=== PATIENT | male | born 1940 | race Caucasian/White ===

== ENCOUNTER 2019-05-15 14:01 | Outpatient (RCR) | payer MEDICARE, OTHER, SELFPAY | END 2019-05-15 14:02 | disposition home or self-care (01) | LOC: ANHAUDIO 14:01 | PROVIDERS: PCP Family Medicine; Visit Provider Family Medicine | DX: Z46.1 Encounter for fitting and adjustment of hearing aid (principal) | CPT/HCPCS: 92593 ==

== ENCOUNTER 2019-08-23 10:27 | Outpatient (RCR) | payer MEDICARE, OTHER, SELFPAY | END 2019-08-23 23:59 | disposition home or self-care (01) | LOC: ANHAUDIO 10:27 | PROVIDERS: PCP Family Medicine; Visit Provider Family Medicine | DX: Z46.1 Encounter for fitting and adjustment of hearing aid (principal) | CPT/HCPCS: 92593; V5014 ==

== ENCOUNTER 2019-09-10 09:50 | Observation (INO) | payer MEDICARE, OTHER, SELFPAY ==
[2019-09-10] VITALS (35 sets, daily range): BP systolic 106–168; BP diastolic 58–97; PULSE 55–96; RESP 9–27; TEMP 36–36.9; O2SAT 90–100; BMI 24.4
--- NOTE | ~2019-09-10 | XR_ITS ---
XR chest 2V 09/10/2019 10:15 Indication: Left chest pain radiating to the left arm Procedure: AP and lateral views of the chest Comparison: Comparison to multiple prior studies sequentially, with oldest reviewed study dated 08/29. Findings: Heart size normal. Status post median sternotomy for CABG. No focal air space disease, pulm onary edema, pleural effusion or suspected pneumothorax. The lungs are hyperinflated which is consist ent with, but not diagnostic of chronic obstructive pulmonary disease. There is calcified granuloma l eft lower lobe. Impression: 1: No acute cardiopulmonary disease. Reviewed, dictated and finalized at location A. Impression: 1: No acute cardiopulmonary disease.
--- NOTE | ~2019-09-10 | NM_ITS ---
EXAMINATION: NM anna stress w perfusion DATE: 09/12/2019 10:39 CDT INDICATION: Chest pain TECHNIQUE: Rest images were obtained following intravenous administration of 10.6 mCi Tc99m tetrofosm in (Myoview). The patient was infused intravenously with Lexiscan (regadenoson). Then, 32.7 mCi Tc99m tetrofosmin (Myoview) was administered intravenously, and stress images were obtained. Data was wander nstructed into short axis and horizontal and vertical long axis SPECT images. Gated SPECT images were also obtained. COMPARISON: None. FINDINGS: There is no definite reversible or fixed perfusion abnormality to suggest ischemia or infar ction. There is no segmental wall motion abnormality. Left ventricular ejection fraction measures 7 7%. IMPRESSION: 1. No definite ischemia or infarct. 2. Normal left ventricular ejection fraction measuring 77%. Reviewed, dictated and finalized at location A.
--- NOTE | ~2019-09-10 | CT_ITS ---
EXAMINATION: CT brain wo con DATE: 09/11/2019 10:03 INDICATION: Left arm paresthesias. TECHNIQUE: Computed tomography (CT) of the head was performed without intravenous contrast. The mA wa s adjusted according to patient size. Iterative reconstruction technique was employed. The dose-lengt h product was 605.33 mGy-cm. COMPARISON: Head CT 10/17/2015 FINDINGS: There are scattered areas of low attenuation in the cerebral white matter, which is within normal limits for the patient's age. There is no intracranial hemorrhage, acute infarction, or abnorm al intracranial mass lesion. The ventricles are normal in size. The orbits are normal. There is mild mucosal thickening in the paranasal sinuses. There is a trace right mastoid effusion. IMPRESSION: 1. Normal aging brain. Reviewed, dictated and finalized at location A. IMPRESSION: 1. Normal aging brain.
--- NOTE | 2019-09-10 09:51 | ECG_ITS ---
Measurements Intervals [place] Rate: 88 P: 52 [place]: 150 QRS: -34 QRSD: 94 T: 45 QT: 367 QTc: 445 Interpretive Statements SINUS RHYTHM LEFT AXIS DEVIATION INCOMPLETE RIGHT BUNDLE BRANCH BLOCK DELAYED PRECORDIAL R/S TRANSITION BORDERLINE ST-T WAVE ABNORMALITY- ANTERIOR LEADS BORDERLINE ECG Electronically Signed On 09-10-2019 13:12:04 CDT by Aurelio Patterson D.O.
--- NOTE | 2019-09-10 09:56 | ED.CHESTPAIN ---
HPI - Chest Pain General Chief Complaint: Chest Pain Stated Complaint: chest tightness Time Seen by Provider: 09/10/19 09:56 Source: patient and family Mode of arrival: ambulatory Limitations: no limitations History of Present Illness HPI narrative: Patient is a 79-year-old male with a history of coronary artery disease, CABG, hypertension, who presents for evaluation of chest pain. Patient reports intermittent left-sided chest pain over the past 2 to 3 days, worsened this morning. Described as a dull, aching sensation rated as a current 4 out of 10 over the left side of his chest, at times there is also been left shoulder and arm pain. No diaphoresis, mild nausea, no vomiting. Patient follows with Dr. Zarate, last checkup was 4 months ago and was unremarkable. Patient has been compliant with his medications. No recent cough, cold, congestion, fever. No leg swelling or leg pain. Related Data Home Medications Medication Instructions Recorded Confirmed aspirin 81 mg tablet,delayed 81 mg PO DAILY 04/27/19 07/13/19 release diclofenac sodium 75 mg 75 mg PO DAILY 04/27/19 07/13/19 tablet,delayed release metoprolol succinate 25 mg 12.5 mg PO DAILY tablet 04/27/19 07/13/19 tablet,extended release 24 hr gijietdg-fki-vnbbg acid 300 1 tablet PO DAILY 04/27/19 07/13/19 mcg-lycopene 600 mcg-lutein 300 mcg tablet docusate sodium 100 mg capsule 100 mg PO DAILY 07/27/19 lactobacillus combination no.8 3 3,000 mmu cells PO DAILY 07/27/19 billion cell capsule loratadine 10 mg tablet 10 mg PO DAILY PRN 07/27/19 methylcellulose (laxative) 500 mg 1,000 mg PO BID tablet 07/27/19 tablet diphenhydramine HCl [Allergy 25 mg PO HS PRN 09/10/19 (diphenhydramine)] Allergies Allergy/AdvReac Type Severity Reaction Status Date / Time benzonatate Allergy Unknown Rash Verified 09/10/19 09:56 Review of Systems Review of Systems: Narrative: CONSTITUTIONAL: Denies fever, chills, reports at times feeling diaphoretic ENT: Denies rhinorrhea, congestion, sore throat, or otalgia. CARDIOVASCULAR: Reports chest pain, denies edema RESPIRATORY: Denies cough or dyspnea. GASTROINTESTINAL: Denies abdominal pain, nausea, vomiting, or diarrhea. GENITOURINARY: Denies dysuria or hematuria. SKIN: Denies rash or itching. MUSCULOSKELETAL: Denies back pain, joint pain, or myalgia. NEUROLOGIC: Denies headache, numbness, or weakness. [facility] Past Medical History Medical History Arthritis CVD (cardiovascular disease) GERD (gastroesophageal reflux disease) Hyperlipidemia Hypertension PRAFUL on CPAP Surgical History Surgical History S/P triple vessel bypass Family History Family History Father Family history of cardiovascular disease Mother Family history of cardiovascular disease Social History Social History Smoking status: Never smoker Second hand tobacco smoke exposure: No Alcohol intake: current Substance use: never Substance use type: does not use Gender identity (if verbalized by the patient): Male Exam Narrative: Exam Narrative: GENERAL: Awake, alert, conversant HEAD: Normocephalic, atraumatic. EYES: PERRLA and EOMI. ENT: Nares clear, no rhinorrhea or epistaxis. Mucous membranes moist. NECK: Supple. CHEST: No respiratory distress, breathing even and non labored, no reproducible chest wall pain HEART: Regular rate, sinus rhythm ABDOMEN:Non distended, non tender EXTREMITIES: Normal range of motion. No edema. SKIN: Warm, dry, no rash. NEURO:No focal deficits. Alert and oriented x3 Course Vital Signs Vital signs: Vital Signs Temperature 36.4 C L 09/10/19 09:52 Pulse Rate 90 09/10/19 09:52 Respiratory Rate 19 09/10/19 09:52 Blood Pressure 168/97 H 09/10/19 09:52 Pulse Oximetr
[2019-09-10 10:06] LABS: Basophils Percent Auto 0.5 % (0.2-1.2); Eosinophils Absolute Auto 0.3 K/mm3 (0-0.3); Eosinophils Percent Auto 3.8 % (0-4.4); Hematocrit 42.3 % (42.0-52.0); Hemoglobin 14.8 g/dL (14.0-18.0); Immature Granulocyte Absolute 0.03 K/mm3 (0.00-0.031); Immature Granulocyte Percent A 0.4 % (0-0.5); Lymphocytes Absolute Auto 2.35 K/mm3 (0.9-3.2); Lymphocytes Percent Auto 27.7 % (18.3-44.2); Mean Corpuscular Volume 94.2 fl (80-100); Mean Platelet Volume 10.7 fl (7.4-10.4); Monocytes Absolute Auto 0.9 K/mm3 (0.1-0.6); Monocytes Percent Auto 10.6 % (2.6-8.5); Neutrophils Absolute Auto 4.8 K/mm3 (1.3-6.7); Platelet Count Result 210 k/mm3 (150-375); Red Blood Count 4.49 M/mm3 (4.6-6.20); Red Cell Distribution Width 12.3 % (11.5-14.5); White Blood Count 8.5 K/mm3 (4.5-10.0)
[2019-09-10 10:15] LABS: INR 1.1; Prothrombin Time 14.2 Seconds (11.1-14.7)
[2019-09-10 10:16] LABS: Partial Thromboplastin Time 26.2 SECONDS (22.3-36.8)
[2019-09-10 10:18] LABS: Blood Urea Nitrogen 27 mg/dL (9-20); Carbon Dioxide 23 mmol/L (22-30); Chloride 106 mmol/L (98-107); Estimated CRCL calculation 56 ml/min; Estimated Glomerular Filt Rate > 60; Glucose 137 mg/dL (75-110); Potassium 4.1 mmol/L (3.4-5.0); Sodium 137 mmol/L (137-145)
[2019-09-10] MEDS: ASPIRIN 81 MG CHEWABLE TABLET 324 MG PO (10:24)
[2019-09-10] MEDS: ONDANSETRON HCL ODT 4 MG TABLET PO (10:25)
[2019-09-10] MEDS: MORPHINE SULFATE 4 MG/ML INJ IV PUSH (10:26)
--- NOTE | 2019-09-10 10:28 | ECG_ITS ---
Measurements Intervals [place] Rate: 61 P: 46 PA: 157 QRS: -25 QRSD: 98 T: -3 QT: 413 QTc: 416 Interpretive Statements SINUS RHYTHM INCOMPLETE RIGHT BUNDLE BRANCH BLOCK DELAYED PRECORDIAL R/S TRANSITION BORDERLINE T WAVE ABNORMALITY- ANT/INF LEADS BORDERLINE ECG Electronically Signed On 09-10-2019 13:13:03 CDT by Aurelio Patterson D.O.
[2019-09-10 10:30] LABS: Troponin I < 0.012 ng/mL (0.000-0.034)
[2019-09-10] MEDS: NITROGLYCERIN SL 0.4 MG TABLET SUBLINGUAL (10:35)
--- NOTE | 2019-09-10 13:08 | PC.NURSE ---
Attempted to call report. Nurse Pamela is in room 204 with new admit and will return call
--- NOTE | 2019-09-10 14:09 | ADMGEN ---
This patient, Stef Cronin Jr., was admitted to IMU Room 202-01. Patient/family oriented to hospital policies and general routines including ID bracelet, bed and alarms, visiting hours, pain management, procedures, bathroom and other care routines, personal items, smoking policy, room service/diet, and visiting hours. Valuables list has been completed. Information on how to activate the Rapid Response Team has been discussed. Patient/Family are encouraged to report perceived risks to care and to ask questions if they do not understand what they are told or what they should do.
[2019-09-10 14:19] LABS: Troponin I < 0.012 ng/mL (0.000-0.034)
--- NOTE | 2019-09-10 16:04 | PC.NURSE ---
Notified Elizabet POLANCO of patients complaint of left arm and shoulder numbness. No new orders at this time and states she will see him next. Will continue to monitor.
[2019-09-10] MEDS: ACETAMINOPHEN 325 MG TABLET 650 MG PO (16:56)
[2019-09-10 16:57] LABS: Troponin I < 0.012 ng/mL (0.000-0.034)
--- NOTE | 2019-09-10 17:00 | PM.IMHP ---
H&P: HPI History of Present Illness Chief complaint: Chest pain. Narrative: Stef Cronin Jr. a 79-year-old male with coronary artery disease status post three-vessel CABG in 2005, hypertension, dyslipidemia, obstructive sleep apnea, and GERD who presented to the emergency department earlier this morning from home for evaluation of chest pain. He is a patient of Dr. Lenard Zarate and last saw him in routine follow-up approximately 4 months ago. For the past several days, Mr. Cronin reports intermittent left anterior chest tightness associated with a dull, aching/throbbing and occasionally ?prickly? sensation in the left shoulder and upper arm. Shortly after eating breakfast this morning, the discomfort returned with nausea and he decided to come in for evaluation. He was given morphine and sublingual nitroglycerin with resolution of his symptoms, but it has continued to return intermittently. He sees no pattern as to when it occurs, but specifically denies that it is related to food or exertion. In fact, he exercises daily, however has not gone to the gym since the COVID shut down, but instead he has been walking approximately 2 miles per day without exertional chest pain or shortness of breath. With further questioning, he mentions frequent belching since the beginning of this year, although he denies overt indigestion/heartburn, and he was directed by his primary care provider to take Celebrex only 1 time a day and he was told to take omeprazole with that as well. He has no history of peptic ulcers and he denies melena and abdominal discomfort. He has not done any recent heavy lifting and does not believe that he has injured his shoulder, arm, or neck. He denies focal weakness and overt paresthesias. No vertigo, auditory, or visual changes. He denies palpitations and feeling of racing heart. No shortness of breath, orthopnea, or PND. He denies lower extremity edema, recent travel, and calf pain. Review of Systems Review of Systems: Narrative: Twelve systems were reviewed with pertinent positives and negatives as per HPI. No fever, chills, or sweats. He denies recent cold and flu symptoms. No recent travel or sick contacts. He has occasional curry ankle edema at the end of the day which resolves by morning. Last bowel movement was at approximately 0830 and was unremarkable. He reports nocturia x2 most nights. Except as documented, all other systems were reviewed and are negative. [facility] Past Medical History Medical History (Updated 09/10/19 @ 18:54 by Soledad Stevenson PA-C) Arthritis Colon polyps Previous endoscopy per Dr. Jean. Coronary artery disease With AL in 2005, status post CABG. Gastroesophageal reflux disease Hyperlipidemia Hypertension Obstructive sleep apnea on CPAP Surgical History Surgical History (Updated 09/10/19 @ 18:41 by Soledad Stevenson PA-C) History of appendectomy (~1974) History of three vessel coronary artery bypass (~10/2005) Family History Family History (Updated 09/10/19 @ 18:41 by Soledad Stevenson PA-C) Father Family history of cardiovascular disease Acute myocardial infarction Mother Family history of cardiovascular disease Acute myocardial infarction Sibling Breast cancer Social History Social History (Updated 09/10/19 @ 18:41 by Soledad Stevenson PA-C) Social History: The patient is and lives with his , Natalee, a 54 years. He is a lifelong nonsmoker. He drinks perhaps 1 alcoholic beverage in the evening. No illicit substance use. He designates his , Natalee, as his surrogate decision maker and he wishes to be a full code. Smoking status: Never smoker Second hand tobacco smoke exposure: No Alcohol intake: current Drinks per week: 7 Substance use: never Substance use type: does not use Gender identity (if verbalized by the patient): Male Spiritual care concerns: Yes Meds Home Medications and Allergies Home Medications Medicati
[2019-09-11] VITALS (17 sets, daily range): BP systolic 102–136; BP diastolic 62–74; PULSE 60–91; RESP 16–20; TEMP 36.4–36.8; O2SAT 95–99
[2019-09-11 04:35] LABS: Hematocrit 40.2 % (42.0-52.0); Hemoglobin 13.7 g/dL (14.0-18.0); Mean Corpuscular HGB Conc 34.1 g/dl (32-36); Mean Corpuscular Hemoglobin 32.3 pg (26-34); Mean Corpuscular Volume 94.8 fl (80-100); Mean Platelet Volume 10.6 fl (7.4-10.4); Platelet Count Result 187 k/mm3 (150-375); Red Blood Count 4.24 M/mm3 (4.6-6.20); Red Cell Distribution Width 12.2 % (11.5-14.5)
[2019-09-11 04:56] LABS: Alanine Aminotransferase 23 U/L (4-50); Albumin Level 3.7 g/dL (3.5-5.1); Alkaline Phosphatase 62 U/L (38-126); Aspartate Amino Transferase 28 U/L (17-59); Bilirubin,Total 1.1 mg/dL (0.2-1.3); Blood Urea Nitrogen 26 mg/dL (9-20); Calcium 8.8 mg/dL (8.4-10.2); Carbon Dioxide 28 mmol/L (22-30); Chloride 106 mmol/L (98-107); Estimated CRCL calculation 44 ml/min; Estimated Glomerular Filt Rate 49; Glucose 98 mg/dL (75-110); Potassium 4.8 mmol/L (3.4-5.0); Sodium 138 mmol/L (137-145)
[2019-09-11] MEDS: PANTOPRAZOLE 40 MG TABLET PO (08:58)
[2019-09-11] MEDS: METOPROLOL SUCCINATE EXT REL 12.5 MG TABCR PO (08:58)
[2019-09-11] MEDS: EZETIMIBE 10 MG TABLET PO (08:59)
[2019-09-11] MEDS: ASPIRIN 81 MG ENTERIC TABLET PO (08:59)
[2019-09-11] MEDS: OPTI-GEN TAB 1 TABLET PO (08:59)
[2019-09-11] MEDS: ACIDOPHILUS/BULGARICUS CHEWABLE TABLET 1 TABLET PO (08:59)
[2019-09-11] MEDS: ATORVASTATIN 40 MG TABLET PO (09:00)
[2019-09-11] MEDS: DICLOFENAC SOD 75 MG TABLET.EC PO (09:01)
--- NOTE | 2019-09-11 09:56 | PM.CNCAR ---
Assessment and Plan Additional Plan 79-year-old gentleman with known multivessel coronary disease who underwent surgical repair at [facility] about 14 years ago. He enters the hospital with an episode of symptoms that began yesterday that I would agree would be of some concern regarding myocardial ischemia although in the face of ongoing symptoms his biomarkers have remained totally normal. Furthermore he is having no exertional symptoms at all. I would event some concern regarding a CVA and apparently the hospitalist's share those concerned since he is having a head CT this morning. Regarding his current symptomatology I would probably favor arranging for a Lexiscan nuclear stress test for an ischemia evaluation. The patient has not been kept NPO and ate his breakfast already this morning so I will consider arranging for with that exam tomorrow. I will review the cerebral CT results when they are available later today. If there are findings that explain the symptoms then an ischemia evaluation may not be necessary at all. Lenard Zarate MD [facility] History of Present Illness History of Present Illness Consult date/time: Date of service: 09/11/19 09:56 Consult reason: chest pain Reason For Visit: Chest pain. Narrative: This is a pleasant 79-year-old man was well known to me with a history of coronary artery disease admitted to the hospital yesterday after an episode of some chest symptoms for which she was seen in the emergency room. The patient is normally enjoying a very good state of health is physically active he does exercise regularly for for cardiac and general fitness several times per week and has not noticed the onset of any exertional symptoms. Yesterday morning he states he became concerned because he noticed this sensation of something different in the left precordial region and in the left arm he describes this as a sensation of some numbness or possibly paresthesias in this area and was brought to the emergency room for evaluation. In the emergency room his electrocardiogram was found to be negative. He became pain-free in the emergency room after receiving both nitroglycerin and what looks like a GI cocktail. His electrocardiograms have looks normal his biomarkers are now back in the are normal x3 sets. He was sleeping in bed when I came in the room to see him this morning for consultation. Upon awakening he appears to be comfortable and in no distress of any sort but still indicates that he has the sensation of tingling or paresthesias in the precordium and in the left upper extremity. He is being taken down this morning for a head CT the transporter is arriving in the room as I am seeing him in consultation. The patient has a history of coronary artery disease who underwent surgical myocardial revascularization in 2005 and has done quite well since then. He did have some symptoms for concerning of ischemia and underwent a follow-up angiogram in May of 2011 at which time he was found to be well revascularized. I last saw him in the office in May of this year at which time he had no cardiovascular complaints and seem to be doing well. His medical regimen consists of aspirin, atorvastatin with Zetia and a modest dose of metoprolol. Review of Systems Constitutional: Constitutional: Reports no additional constitutional complaints Eyes: Eyes: Reports no additional eye complaints ENT: Reports system reviewed and no additional complaints, except as documented Cardiovascular: Cardiovascular: Reports as per HPI Respiratory: Respiratory: Reports no additional respiratory complaints Gastrointestinal: Gastrointestinal: Reports no additional gastrointestinal complaints Genitourinary: Genitourinary: Reports no additional male genitourinary complaints Musculoskeletal: Musculoskeletal: Reports as per HPI Integumentary/Breasts: Skin/Breast: Reports system reviewed and no additional complaints, except as docu Neurologic
--- NOTE | 2019-09-11 14:32 | PM.IMPN ---
Progress Note: A&P Assessment and Plan (1) Chest pain: Qualifiers: Chest pain type: unspecified Qualified Code(s): R07.9 - Chest pain, unspecified Code(s): R07.9 - Chest pain, unspecified Status: Acute Assessment and Plan: Likely musculoskeletal in etiology given reproducible tenderness in the left anterior chest and left shoulder/upper arm. Cervical radiculopathy is felt to be less likely. He has ruled out for acute coronary syndrome by serial troponins. Dr. Zarate evaluated the patient today and given his cardiac history and symptoms he would like to set up a Lexiscan nuclear stress test for further evaluation in the morning. Has improved and will continue monitoring it overnight. Continue monitoring and cardiology's input is always appreciated. (2) Hypertension: Code(s): I10 - Essential (primary) hypertension Status: Acute Assessment and Plan: Blood pressure was as high on arrival but is today it is much improved, this afternoon it was 102/69 Continue antihypertensives and monitor daily. (3) Hyperlipidemia: Code(s): E78.5 - Hyperlipidemia, unspecified Status: Acute Assessment and Plan: Continue atorvastatin and Zetia. (4) Obstructive sleep apnea on CPAP: Code(s): G47.33 - Obstructive sleep apnea (adult) (pediatric); Z99.89 - Dependence on other enabling machines and devices Status: Acute Assessment and Plan: Hospital CPAP available for use while hospitalized. (5) Gastroesophageal reflux disease: Code(s): K21.9 - Gastro-esophageal reflux disease without esophagitis Status: Acute Assessment and Plan: He denies any real symptoms of GERD, but has been having increased belching since April 2019. I do not think that his chest discomfort today is related to a GI etiology. He was encouraged to continue taking a PPI with his diclofenac which he is now taking just once a day. Will check stool for occult blood, but he will need outpatient follow-up with Dr. Jean. (6) Arthritis: Code(s): M19.90 - Unspecified osteoarthritis, unspecified site Status: Acute Assessment and Plan: As above, continue diclofenac once a day for osteoarthritic pain in the knees. He is taking omeprazole daily with that as well. (7) Coronary artery disease: Code(s): I25.10 - Atherosclerotic heart disease of [place] coronary artery without angina pectoris Status: Acute Assessment and Plan: Continue aspirin, statin, and beta-yolanda. Time Spent With Patient Time with patient: 25 - 35 minutes Subjective Date/time seen: 09/11/19 14:32 Interval history: Date of service 09/11/2019: The patient reports improvement of his chest discomfort today. He states his chest pain started after he was eating his breakfast and it was to the left side of his chest and felt more like a numbness/tingling sensation/pins and needles, and was also into his left shoulder and left medial arm. He denies any diaphoresis, shortness of breath, radiation of pain into his jaw or back. He states the pain medications on arrival helped as well as the heating pad he has been using since last night. He still has some of the chest tingling/numbness today and is improving his arm. Patient denies any headache, vision changes, lightheadedness, dizziness, neck pain, neck stiffness, focal weakness, cough, fever, chills, nausea, vomiting, abdominal pain, leg swelling, calf pain or any other symptoms at this time. Review of Systems Review of Systems: All systems reviewed & are unremark
[2019-09-12] VITALS (9 sets, daily range): BP systolic 123; BP diastolic 78; PULSE 60–84; RESP 17–20; TEMP 36.7; O2SAT 97–99
[2019-09-12 04:22] LABS: Hematocrit 41.5 % (42.0-52.0); Hemoglobin 14.3 g/dL (14.0-18.0); Mean Corpuscular HGB Conc 34.5 g/dl (32-36); Mean Corpuscular Hemoglobin 32.6 pg (26-34); Mean Corpuscular Volume 94.7 fl (80-100); Mean Platelet Volume 10.4 fl (7.4-10.4); Platelet Count Result 194 k/mm3 (150-375); Red Blood Count 4.38 M/mm3 (4.6-6.20); Red Cell Distribution Width 12.2 % (11.5-14.5); White Blood Count 8.3 K/mm3 (4.5-10.0)
[2019-09-12 04:33] LABS: Blood Urea Nitrogen 28 mg/dL (9-20); Calcium 8.5 mg/dL (8.4-10.2); Carbon Dioxide 26 mmol/L (22-30); Chloride 106 mmol/L (98-107); Estimated CRCL calculation 51 ml/min; Estimated Glomerular Filt Rate 59; Glucose 104 mg/dL (75-110); Potassium 4.2 mmol/L (3.4-5.0); Sodium 138 mmol/L (137-145)
--- NOTE | 2019-09-12 08:30 | EST_ITS ---
Patient Info Name: Stef Cronin Age: 79 years : 1940 Gender: Male Ht: 73 in Wt: 184 lbs BSA: 2.08 m2 Exam Date: 09/12/2019 8:29 AM Exam Location: [facility] Stress Patient Status: Inpatient Admit Date: 09/10/2019 Staff Ordering Physician: Emilee Huynh APRN Attending Provider: Edwardo Farris PA-C Exercise Technologist: Danna Cole RDCS Nurse: Emilee Huynh, ANP, ACNP-BC Exam Type: CA stress anna w NM Study Info Indications R07.89 - Other chest pain A regadenoson stress test was performed. Summary 1. No abnormal ST-T wave changes with lexiscan. 2. Nuclear test results to follow. Protocol: Lexiscan Stress ECG Details Stage: REST Duration (min): 6 min : 48 sec HR (bpm): 67 SBP (mmHg): 131 DBP (mmHg): 79 Stage: REST Duration (min): 12 min : 48 sec HR (bpm): 68 SBP (mmHg): 131 DBP (mmHg): 79 Stage: STAGE 1 Duration (min): 0 min : 59 sec HR (bpm): 81 SBP (mmHg): 135 DBP (mmHg): 79 Stage: RECOVERY Duration (min): 1 min : 0 sec HR (bpm): 98 SBP (mmHg): 109 DBP (mmHg): 72 Stage: RECOVERY Duration (min): 2 min : 0 sec HR (bpm): 99 SBP (mmHg): 109 DBP (mmHg): 72 Stage: RECOVERY Duration (min): 3 min : 0 sec HR (bpm): 101 SBP (mmHg): 96 DBP (mmHg): 64 Stage: RECOVERY Duration (min): 4 min : 0 sec HR (bpm): 96 SBP (mmHg): 96 DBP (mmHg): 64 Stage: RECOVERY Duration (min): 5 min : 0 sec HR (bpm): 97 SBP (mmHg): 100 DBP (mmHg): 67 Stage: RECOVERY Duration (min): 6 min : 0 sec HR (bpm): 90 SBP (mmHg): 100 DBP (mmHg): 67 Stage: RECOVERY Duration (min): 7 min : 0 sec HR (bpm): 91 SBP (mmHg): 119 DBP (mmHg): 67 Stage: RECOVERY Duration (min): 7 min : 50 sec HR (bpm): 87 SBP (mmHg): 122 DBP (mmHg): 70 Rest HR: 68 bpm Peak HR: 103 bpm Rest Sys BP: 131 mmHg Peak Sys BP: 135 mmHg Max Pred HR: 142 bpm % Max Pred HR: 73 % Target HR: 121 bpm Max RPP: 13,905 bpm*mmHg BP Response: Normal blood pressure response Termination Reason: Completed protocol Cardiac Symptoms: None Total Time: 1 min : 0 sec Rest Duke BP: 79 mmHg Peak Duke BP: 79 mmHg Total Dose: 0.4 mg Resting ECG Normal sinus rhythm - normal ECG. Stress ECG No abnormal ST/T wave changes with exercise. Arrhythmias None. Report Signatures
--- NOTE | 2019-09-12 09:15 | PM.PNCARD ---
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 Troponin negative x3. Lexiscan negative for ischemia. Time Spent With Patient Time: OK to discharge from cardiac standpoint See discharge instructions for follow-up Plan discussed with Dr Lorelei Ross 09/12/2019 Time with patient: 15 - 25 minutes Subjective Date/time seen: 09/12/19 08:53 Seen in stress lab Interval history: Follow-up for: Chest pain. History of multivessel coronary artery disease status post surgical revascularization approximately 14 years ago, hyperlipidemia, hypertension, obstructive sleep apnea with CPAP. Date of service: 09/12/2019 Subjective: Slept well. Denied chest discomfort, shortness of breath or lightheadedness. Review of Systems Constitutional: Constitutional: Denies chills and Denies fatigue Eyes: Eyes: Denies blurry vision ENT: Reports Normal hearing present Cardiovascular: Cardiovascular: Denies chest pain, Denies rapid heart rate and Denies dyspnea Respiratory: Respiratory: Denies dyspnea Gastrointestinal: Gastrointestinal: Denies nausea and Denies vomiting Genitourinary: Genitourinary: Denies hematuria Musculoskeletal: Musculoskeletal: Denies back pain Integumentary/Breasts: Skin/Breast: Denies erythema and Denies rash Neurologic: Reports Normal hearing present, Denies dizziness and Denies numbness Psychiatric: Psychiatric: Denies anxiety and Denies depression Endocrine: Endocrine: Denies fatigue Hematologic/Lymphatic: Hematologic/Lymphatic: Denies easy bleeding and Denies easy bruising Exam Const: General: comfortable and no acute distress Other: Seen in stress lab. HENMT: Mouth: Yes moist mucous membranes Eyes: Sclera: sclerae normal Pupils: Equal, round and reactive pupils present Neck: Neck: supple and no JVD Resp: Effort & Inspection: normal respiratory effort and able to speak in complete sentences Auscultation: clear to auscultation bilaterally Cardio: Rate: regular rate Rhythm: regular rhythm Other: Soft grade 1-2 systolic murmur at the apex GI: GI Palp: Yes Soft to palpation Auscultation: normal bowel sounds Skin: General skin exam: normal color Lesions: no lesions Rashes: no rashes Neuro: Cranial nerves: Yes Equal, round and reactive pupils present Cognition (Neuro): normal cognition Extrem: General: normal to inspection and no pedal edema Psych: Appearance: grossly normal Mental Status: mental status grossly normal Speech and movement: Normal speech and movement present Affect: normal affect Attitude: cooperative Thought process: Normal thought process present Thought content: Yes Normal thought content present Insight: Good insight present (Psych) Judgement: Good judgement present (Psych) Objective Data Vital Signs Vital Signs: Vital Signs - 24 hr 09/11/19 10:00 09/11/19 12:00 09/11/19 14:00 Temperature 36.4 C L Pulse Rate 70 67 71 Respiratory Rate 16 Blood Pressure 102/69 Pulse Oximetry 98 09/11/19 16:00 09/11/19 18:00 09/11/19 19:39 Temperature 36.8 C 36.5 C Pulse Rate 64 67 71 Respiratory Rate 16 16 Blood Pressure 124/64 105/65 Pulse Oximetry 96 95 09/11/19 20:00 09/11/19 22:00 09/11/19 23:05 Temperature Pulse Rate 69 64 67 Respiratory Rate 16 16 Blood Pressure Pulse Oximetry 95 97 09/11/19 23:23 09/12/19 00:00 09/12/19 01:45 Temperature 36.7 C Pulse Rate 65 63 60 Respiratory Rate 20 20 17 Blood Pressure 109/65 Pulse Oximetry 97 97 97 09/12/19 02:00 09/12/19 04:00 09/12/19 05:39 Temperature 36.7 C Pulse Rate 62 84 62 Respiratory Rate 18 Blood Pressure 123/78 Pulse Oximetry 99 Intake/Outp
[2019-09-12] MEDS: ACIDOPHILUS/BULGARICUS CHEWABLE TABLET 1 TABLET PO (10:21)
[2019-09-12] MEDS: PANTOPRAZOLE 40 MG TABLET PO (10:22)
[2019-09-12] MEDS: ASPIRIN 81 MG ENTERIC TABLET PO (10:22)
[2019-09-12] MEDS: ATORVASTATIN 40 MG TABLET PO (10:22)
[2019-09-12] MEDS: METOPROLOL SUCCINATE EXT REL 12.5 MG TABCR PO (10:22)
[2019-09-12] MEDS: EZETIMIBE 10 MG TABLET PO (10:22)
[2019-09-12] MEDS: DICLOFENAC SOD 75 MG TABLET.EC PO (10:22)
[2019-09-12] MEDS: OPTI-GEN TAB 1 TABLET PO (10:22)
--- NOTE | 2019-09-12 12:52 | PM.DS ---
DS: Admitting Diagnosis Admitting Diagnosis Admitting Diagnosis: Chest pain, unspecified DS: Discharge Diagnosis Discharge Diagnosis (1) Chest pain: Qualifiers: Chest pain type: unspecified Qualified Code(s): R07.9 - Chest pain, unspecified Code(s): R07.9 - Chest pain, unspecified Status: Acute Assessment and Plan: Aston to be likely musculoskeletal in etiology given reproducible tenderness in the left anterior chest and left shoulder/upper arm earlier in stay; much improved today, although still present. Cervical radiculopathy is felt to be less likely. He has ruled out for acute coronary syndrome by serial troponins; nuc stress test showed no ischemia. Okay for discharge from Cardiology standpoint. F/u with PCP in 1-2 weeks from discharge or per their recommendations F/u with Cardiology in 11/2019. (2) Hypertension: Code(s): I10 - Essential (primary) hypertension Status: Acute Assessment and Plan: Blood pressure was as high on arrival. Reasonable today at 120s sys Continue antihypertensives F/u with cardiology as op (3) Hyperlipidemia: Code(s): E78.5 - Hyperlipidemia, unspecified Status: Acute Assessment and Plan: Continue atorvastatin and Zetia. (4) Obstructive sleep apnea on CPAP: Code(s): G47.33 - Obstructive sleep apnea (adult) (pediatric); Z99.89 - Dependence on other enabling machines and devices Status: Acute Assessment and Plan: Hospital CPAP available for use while hospitalized. (5) Gastroesophageal reflux disease: Code(s): K21.9 - Gastro-esophageal reflux disease without esophagitis Status: Acute Assessment and Plan: He denies any real symptoms of GERD, but has been having increased belching since April 2019. Chest discomfort likely not GI related given history/PE. Continue PPI with his diclofenac which he is now taking just once a day. F/u with Dr. Jean per their instructions (6) Arthritis: Code(s): M19.90 - Unspecified osteoarthritis, unspecified site Status: Acute Assessment and Plan: As above, continue diclofenac once a day for osteoarthritic pain in the knees. He is taking omeprazole daily with that as well. (7) Coronary artery disease: Code(s): I25.10 - Atherosclerotic heart disease of [place] coronary artery without angina pectoris Status: Acute Assessment and Plan: Continue aspirin, statin, and beta-yolanda. DS: Summary Hospital Course Reason for hospitalization: Chest pain; acs r/o Hospital Course: Patient is a 79 yo M with history of coronary artery disease status post three-vessel CABG in 2005, hypertension, dyslipidemia, obstructive sleep apnea, and GERD who presented to the emergency department on 09/09 from home for evaluation of chest pain. While in the ER, patient's pain improved after morphine, nitroglycerin; EKG showed no remarkable changs and CXR unremarkable. Stable angina, unstable angina pectoris, atypical chest pain, STEMI of concern while in the ER. Patient admitted under the setting of ACS r/o. Please see H&P for further details. Presenting VS: Temp Pulse Resp BP Pulse Ox 97.5 F L 90 19 168/97 H 100 05/31/20 09:52 09/10/19 09:52 09/10/19 09:52 09/10/19 09:52 09/10/19 09:52 Presenting Pertinent labs: Serial troponins negative. CBC, coags, chemistry otherwise unremarkable Micro: none Imaging: Chest X-Ray 09/10/19 10:19 Impression: 1: No acute cardiopulmonary disease. Head CT 09/11/19 10:05 IMPRESSION: 1. Normal aging brain. Lexiscan Stress Test
== END 2019-09-12 13:50 | disposition home or self-care (01) ==
LOC: ANHED 11:50 → ANHIMU 12:59
PROVIDERS: Physician Assistant; Admitting Provider Internal Medicine; Emergency Provider Emergency Medicine; PCP Family Medicine; Visit Provider Physician Assistant
DX: R07.89 Other chest pain (principal); I25.10 Atherosclerotic heart disease of native coronary artery without angina pectoris; I25.2 Old myocardial infarction; I10 Essential (primary) hypertension; E78.5 Hyperlipidemia, unspecified; G47.33 Obstructive sleep apnea (adult) (pediatric); K21.9 Gastro-esophageal reflux disease without esophagitis; M19.90 Unspecified osteoarthritis, unspecified site; Z95.1 Presence of aortocoronary bypass graft; Z99.89 Dependence on other enabling machines and devices
CPT/HCPCS: 36415; 70450; 71046; 78452; 80048; 80053; 84484; 85025; 85027; 85610; 85730; 93005; 93017; 96374; 99285; A9270; A9502; G0378; J2270; J2785

== ENCOUNTER 2019-11-16 15:34 | Outpatient (CLI) | payer MEDICARE, OTHER, SELFPAY ==
--- NOTE | ~2019-11-16 | CT_ITS ---
EXAMINATION: CT abdomen wo con DATE: 11/16/2019 16:00 INDICATION: Back pain, costovertebral angle tenderness TECHNIQUE: Computed tomography (CT) of the abdomen was performed without intravenous contrast. Automa whitney exposure control and iterative reconstruction technique were employed. Exam dose: 332.19 mGy-cm total exam DLP. COMPARISON: None. FINDINGS: There is discoid atelectasis or scarring in both lung bases. Heart size is normal. Status p ost sternotomy. No pericardial or pleural effusion. Small sliding hiatal hernia. Cholelithiasis. The gallbladder wall appears thickened but is not optimally evaluated because of cont raction. No bile duct or pancreatic duct dilatation. No hepatic, splenic, pancreatic or left adrenal space-occupying mass lesion is evident. Approximately 2 x 2.5 cm right adrenal mass with mean attenuation of 5 Hounsfield units. In the absen ce of any known malignancy, this is likely an adrenal adenoma. No renal mass lesion is evident on this limited noncontrast examination. No renal or proximal uretera l calculus or hydronephrosis. There is extensive calcification of the abdominal aorta and iliac arteries but no aneurysm. No intraperitoneal or retroperitoneal mass lesion or adenopathy or ascites. Normal appendix. Diverticulosis of the colon; no CT evidence of diverticulitis. Small fat-containing umbilical hernia. There is mild chronic anterior wedging of T10 and T11. There is severe degenerative disc disease at L1-2 with associated retrolisthesis. There is minimal retrolisthesis at L3-4. There is severe degenerative change at the apophyseal joints of the lumbar and lumbosacral spine with associated grade 1 anterolisthesis at L4-5. IMPRESSION: Cholelithiasis, gallbladder wall thickening Small sliding hiatal hernia 2 x 2.5 cm right adrenal low attenuating mass, likely an adrenal adenoma if there is no known maligna ncy Diverticulosis of the colon Reviewed, dictated and finalized at [facility]. Reviewed, dictated and finalized at location A. IMPRESSION: Cholelithiasis, gallbladder wall thickening Small sliding hiatal hernia 2 x 2.5 cm right adrenal low attenuating mass, likely an adrenal adenoma if the re is no known malignancy Diverticulosis of the colon
== END 2019-11-16 15:35 | disposition home or self-care (01) ==
PROVIDERS: PCP Family Medicine; Visit Provider Family Medicine
DX: M54.9 Dorsalgia, unspecified (principal); K80.20 Calculus of gallbladder without cholecystitis without obstruction; K44.9 Diaphragmatic hernia without obstruction or gangrene; K57.30 Diverticulosis of large intestine without perforation or abscess without bleeding; D35.01 Benign neoplasm of right adrenal gland
CPT/HCPCS: 74150

== ENCOUNTER → 2019-12-01 07:34 | Outpatient (CLI) | payer MEDICARE, OTHER, SELFPAY ==
--- NOTE | ~2019-12-01 | US_ITS ---
EXAMINATION: US abdomen limited DATE: 12/01/2019 08:15 INDICATION: Right upper quadrant pain TECHNIQUE: Multiple grayscale and Doppler ultrasound images of the abdomen were obtained. COMPARISON: CT, 11/16/2019 FINDINGS: The head, body, and tail of the pancreas are normal. The liver is normal with normal echoge nicity and echotexture. No surface nodularity. Normal hepatopetal flow in the main portal vein. There is a 7 mm stone of the gallbladder. No pericholecystic fluid or gallbladder wall thickening are iden tified. The normal common bile duct measures 3 mm. There was no sonographic Wilks sign. Incidental n ote is made of a 2.6 cm mass of the right adrenal gland which corresponds to an adenoma on the compar marichuy CT. IMPRESSION: 1. Cholelithiasis without evidence of cholecystitis. Reviewed, dictated and finalized at location A.
== END ==
PROVIDERS: PCP Family Medicine; Visit Provider Surgery
DX: K80.20 Calculus of gallbladder without cholecystitis without obstruction (principal)
CPT/HCPCS: 76705

== ENCOUNTER 2019-12-07 06:57 | Outpatient (CLI) | payer MEDICARE, OTHER, SELFPAY ==
[2019-12-07 08:39] LABS: Cholesterol 123 mg/dL (0-200); HDL Direct 38 mg/dL; Triglycerides 62 mg/dL (<150)
[2019-12-07 08:49] LABS: LDL Cholesterol Direct 72 mg/dL
[2019-12-07 09:07] LABS: Prostate Specific Antigen 0.9 ng/mL (< OR = 4.0)
== END 2019-12-07 06:58 | disposition home or self-care (01) ==
LOC: ANHLAB 07:01
PROVIDERS: PCP Family Medicine; Visit Provider Family Medicine
DX: E78.2 Mixed hyperlipidemia (principal); Z12.5 Encounter for screening for malignant neoplasm of prostate
CPT/HCPCS: 36415; 80061; 84153; G0103

== ENCOUNTER 2020-12-13 07:00 | Outpatient (CLI) | payer MEDICARE, OTHER, SELFPAY ==
[2020-12-13 07:51] LABS: Hematocrit 43.4 % (42.0-52.0); Hemoglobin 14.6 g/dL (14.0-18.0); Mean Corpuscular HGB Conc 33.6 g/dl (32-36); Mean Corpuscular Hemoglobin 32.3 pg (26-34); Mean Platelet Volume 10.9 fl (7.4-10.4); Platelet Count Result 201 k/mm3 (150-375); Red Blood Count 4.52 M/mm3 (4.6-6.20); Red Cell Distribution Width 12.5 % (11.5-14.5); White Blood Count 6.6 K/mm3 (4.5-10.0)
[2020-12-13 08:04] LABS: Alanine Aminotransferase 21 U/L (4-50); Albumin Level 4.1 g/dL (3.5-5.1); Alkaline Phosphatase 65 U/L (38-126); Anion Gap 8 mmol/L (8-16); Aspartate Amino Transferase 29 U/L (17-59); Bilirubin,Total 0.8 mg/dL (0.2-1.3); Blood Urea Nitrogen 27 mg/dL (9-20); Calcium 8.9 mg/dL (8.4-10.2); Carbon Dioxide 26 mmol/L (22-30); Chloride 106 mmol/L (98-107); Cholesterol 117 mg/dL (0-200); Estimated Glomerular Filt Rate 58; Glucose 106 mg/dL (65-110); HDL Direct 37 mg/dL; Potassium 4.3 mmol/L (3.4-5.0); Sodium 140 mmol/L (137-145); Triglycerides 63 mg/dL (<150)
[2020-12-13 08:16] LABS: LDL Cholesterol Direct 57 mg/dL
[2020-12-13 08:38] LABS: Prostate Specific Antigen 1.5 ng/mL (< OR = 4.0)
== END 2020-12-13 07:01 | disposition home or self-care (01) ==
PROVIDERS: PCP Family Medicine; Visit Provider Family Medicine
DX: Z12.5 Encounter for screening for malignant neoplasm of prostate (principal); D64.9 Anemia, unspecified; E78.2 Mixed hyperlipidemia
CPT/HCPCS: 36415; 80053; 80061; 84153; 85027; G0103

== ENCOUNTER 2021-04-22 09:47 | Outpatient (CLI) | payer MEDICARE, OTHER, SELFPAY | END 2021-04-22 09:48 | disposition home or self-care (01) | LOC: ANHAUDIO 09:49 | PROVIDERS: PCP Family Medicine; Visit Provider Family Medicine | DX: H90.3 Sensorineural hearing loss, bilateral (principal) | CPT/HCPCS: 92557; 92567 ==

== ENCOUNTER 2021-05-21 12:46 | Outpatient (RCR) | payer MEDICARE, OTHER, SELFPAY | END 2021-05-21 23:59 | disposition home or self-care (01) | LOC: ANHAUDIO 12:46 | PROVIDERS: PCP Family Medicine; Visit Provider Family Medicine | DX: Z46.1 Encounter for fitting and adjustment of hearing aid (principal) | CPT/HCPCS: 99199 ==

== ENCOUNTER 2021-08-06 07:35 | Outpatient (CLI) | payer MEDICARE, OTHER, SELFPAY ==
[2021-08-06 08:14] LABS: Alanine Aminotransferase 22 U/L (4-50); Albumin Level 4.4 g/dL (3.5-5.1); Alkaline Phosphatase 64 U/L (38-126); Anion Gap 6 mmol/L (8-16); Aspartate Amino Transferase 31 U/L (17-59); Bilirubin,Total 1.2 mg/dL (0.2-1.3); Blood Urea Nitrogen 25 mg/dL (9-20); Calcium 8.8 mg/dL (8.4-10.2); Carbon Dioxide 27 mmol/L (22-30); Chloride 106 mmol/L (98-107); Cholesterol 124 mg/dL (0-200); Estimated Glomerular Filt Rate 58; Glucose 112 mg/dL (65-110); HDL Direct 37 mg/dL; Potassium 4.3 mmol/L (3.4-5.0); Sodium 139 mmol/L (137-145); Triglycerides 73 mg/dL (<150)
[2021-08-06 08:25] LABS: LDL Cholesterol Direct 61 mg/dL
== END 2021-08-06 07:36 | disposition home or self-care (01) ==
LOC: ANHLAB 07:38
PROVIDERS: PCP Family Medicine; Visit Provider Family Medicine
DX: E78.2 Mixed hyperlipidemia (principal); I10 Essential (primary) hypertension
CPT/HCPCS: 36415; 80053; 80061

== ENCOUNTER 2021-10-03 09:15 | Outpatient (RCR) | payer MEDICARE, OTHER, SELFPAY | END 2021-10-03 23:59 | disposition home or self-care (01) | LOC: ANHAUDIO 09:15 | PROVIDERS: PCP Family Medicine; Visit Provider Family Medicine | DX: Z46.1 Encounter for fitting and adjustment of hearing aid (principal) | CPT/HCPCS: 99199 ==

== ENCOUNTER 2022-02-09 07:07 | Outpatient (CLI) | payer MEDICARE, OTHER, SELFPAY ==
[2022-02-09 08:07] LABS: Albumin Level 4.2 g/dL (3.5-5.1); Bilirubin,Total 1.3 mg/dL (0.2-1.3); Blood Urea Nitrogen 26 mg/dL (9-20); Carbon Dioxide 26 mmol/L (22-30); Cholesterol 114 mg/dL (0-200); Estimated Glomerular Filt Rate 58
[2022-02-09 08:08] LABS: Basophils Absolute Auto 0.1 K/mm3 (0.0-0.1); Eosinophils Absolute Auto 0.4 K/mm3 (0-0.3); Eosinophils Percent Auto 5.6 % (0-4.4); Hematocrit 43.3 % (42.0-52.0); Hemoglobin 14.7 g/dL (14.0-18.0); Immature Granulocyte Absolute 0.02 K/mm3 (0.00-0.031); Immature Granulocyte Percent A 0.3 % (0-0.5); Lymphocytes Absolute Auto 1.24 K/mm3 (0.9-3.2); Lymphocytes Percent Auto 18.4 % (18.3-44.2); Mean Corpuscular HGB Conc 33.9 g/dl (32-36); Mean Corpuscular Hemoglobin 32.9 pg (26-34); Mean Corpuscular Volume 96.9 fl (80-100); Mean Platelet Volume 10.7 fl (7.4-10.4); Monocytes Absolute Auto 0.7 K/mm3 (0.1-0.6); Monocytes Percent Auto 10.4 % (2.6-8.5); Neutrophils Absolute Auto 4.3 K/mm3 (1.3-6.7); Neutrophils Percent Auto 64.3 % (45.5-73.1); Platelet Count Result 189 k/mm3 (150-375); Red Blood Count 4.47 M/mm3 (4.6-6.20); Red Cell Distribution Width 12.6 % (11.5-14.5); White Blood Count 6.8 K/mm3 (4.5-10.0)
[2022-02-09 08:16] LABS: LDL Cholesterol Direct 58 mg/dL
[2022-02-09 08:45] LABS: Alanine Aminotransferase 25 U/L (6-50); Alkaline Phosphatase 63 U/L (38-126); Anion Gap 9 mmol/L (8-16); Aspartate Amino Transferase 29 U/L (17-59); Calcium 8.6 mg/dL (8.4-10.2); Chloride 104 mmol/L (98-107); Glucose 114 mg/dL (65-110); HDL Direct 35 mg/dL; Potassium 4.2 mmol/L (3.4-5.0); Sodium 139 mmol/L (137-145); Triglycerides 79 mg/dL (<150)
== END 2022-02-09 07:08 | disposition home or self-care (01) ==
LOC: ANHLAB 07:09
PROVIDERS: PCP Family Medicine; Visit Provider Family Medicine
DX: R53.83 Other fatigue (principal); R68.89 Other general symptoms and signs; R68.2 Dry mouth, unspecified; R73.09 Other abnormal glucose; Z12.5 Encounter for screening for malignant neoplasm of prostate; E78.2 Mixed hyperlipidemia; I25.10 Atherosclerotic heart disease of native coronary artery without angina pectoris; I10 Essential (primary) hypertension
CPT/HCPCS: 36415; 80053; 80061; 83036; 84153; 84443; 85025; G0103

== ENCOUNTER 2022-07-20 15:06 | Outpatient (CLI) | payer MEDICARE, OTHER, SELFPAY ==
[2022-07-20 16:50] LABS: Alanine Aminotransferase 28 U/L (6-50); Alkaline Phosphatase 65 U/L (38-126); Anion Gap 7 mmol/L (8-16); Aspartate Amino Transferase 32 U/L (17-59); Bilirubin,Total 0.9 mg/dL (0.2-1.3); Blood Urea Nitrogen 29 mg/dL (9-20); Calcium 8.5 mg/dL (8.4-10.2); Carbon Dioxide 27 mmol/L (22-30); Chloride 105 mmol/L (98-107); Cholesterol 116 mg/dL (0-200); Estimated Glomerular Filt Rate 58; Glucose 94 mg/dL (65-110); HDL Direct 32 mg/dL; Potassium 4.4 mmol/L (3.4-5.0); Sodium 139 mmol/L (137-145); Triglycerides 138 mg/dL (<150)
[2022-07-20 17:01] LABS: LDL Cholesterol Direct 61 mg/dL
[2022-07-20 17:33] LABS: Hemoglobin A1C 5.5 % (<5.7)
== END 2022-07-20 15:07 | disposition home or self-care (01) ==
LOC: ANHLAB 15:08
PROVIDERS: PCP Family Medicine; Visit Provider Family Medicine
DX: R73.03 Prediabetes (principal); E78.2 Mixed hyperlipidemia
CPT/HCPCS: 36415; 80053; 80061; 83036

== ENCOUNTER 2023-02-04 06:58 | Outpatient (CLI) | payer MEDICARE, OTHER, SELFPAY ==
[2023-02-04 07:54] LABS: Hemoglobin A1C 5.7 % (<5.7)
[2023-02-04 07:55] LABS: Alanine Aminotransferase 23 U/L (6-50); Albumin Level 3.9 g/dL (3.5-5.1); Alkaline Phosphatase 62 U/L (38-126); Anion Gap 7 mmol/L (8-16); Aspartate Amino Transferase 27 U/L (17-59); Bilirubin,Total 0.9 mg/dL (0.2-1.3); Blood Urea Nitrogen 30 mg/dL (9-20); Calcium 8.7 mg/dL (8.4-10.2); Carbon Dioxide 24 mmol/L (22-30); Chloride 109 mmol/L (98-107); Cholesterol 95 mg/dL (0-200); Estimated Glomerular Filt Rate > 60; Glucose 107 mg/dL (65-110); HDL Direct 32 mg/dL; Sodium 140 mmol/L (137-145); Triglycerides 76 mg/dL (<150)
[2023-02-04 08:06] LABS: LDL Cholesterol Direct 50 mg/dL
== END 2023-02-04 06:59 | disposition home or self-care (01) ==
LOC: ANHLAB 06:59
PROVIDERS: PCP Family Medicine; Visit Provider Family Medicine
DX: R73.03 Prediabetes (principal); I10 Essential (primary) hypertension; E78.2 Mixed hyperlipidemia
CPT/HCPCS: 36415; 80053; 80061; 83036

== ENCOUNTER 2023-06-25 09:50 | Outpatient (CLI) | payer MEDICARE, OTHER, SELFPAY | END 2023-06-25 09:51 | disposition home or self-care (01) | LOC: ANHAUDIO 09:50 | PROVIDERS: PCP Family Medicine; Visit Provider Physician Assistant | DX: H90.A32 Mixed conductive and sensorineural hearing loss, unilateral, left ear with restricted hearing on the contralateral side (principal); H93.11 Tinnitus, right ear | CPT/HCPCS: 92557; 92567 ==

== ENCOUNTER 2023-08-06 11:32 | Outpatient (CLI) | payer MEDICARE, OTHER, SELFPAY ==
[2023-08-06 12:02] LABS: Alanine Aminotransferase 22 U/L (6-50); Alkaline Phosphatase 56 U/L (38-126); Anion Gap 8 mmol/L (4-12); Aspartate Amino Transferase 28 U/L (17-59); Bilirubin,Total 0.9 mg/dL (0.2-1.3); Blood Urea Nitrogen 27 mg/dL (9-20); Carbon Dioxide 24 mmol/L (22-30); Chloride 108 mmol/L (98-107); Cholesterol 113 mg/dL (0-200); Estimated Glomerular Filt Rate > 60; Glucose 99 mg/dL (65-110); HDL Direct 39 mg/dL; Potassium 4.1 mmol/L (3.4-5.0); Sodium 140 mmol/L (137-145); Triglycerides 115 mg/dL (<150)
[2023-08-06 12:13] LABS: LDL Cholesterol Direct 67 mg/dL
[2023-08-06 12:22] LABS: Hemoglobin A1C 5.6 % (<5.7)
== END 2023-08-06 11:33 | disposition home or self-care (01) ==
LOC: ANHLAB 11:34
PROVIDERS: PCP Family Medicine; Visit Provider Family Medicine
DX: R73.03 Prediabetes (principal); I10 Essential (primary) hypertension; E78.2 Mixed hyperlipidemia
CPT/HCPCS: 36415; 80053; 80061; 83036

== ENCOUNTER 2023-08-26 09:40 | Outpatient (CLI) | payer MEDICARE, OTHER, SELFPAY | END 2023-08-26 09:41 | disposition home or self-care (01) | LOC: ANHAUDIO 09:42 | PROVIDERS: PCP Family Medicine; Visit Provider Otolaryngology | DX: H90.6 Mixed conductive and sensorineural hearing loss, bilateral (principal); J31.0 Chronic rhinitis; Z97.4 Presence of external hearing-aid | CPT/HCPCS: 92557; 92567 ==

== ENCOUNTER 2023-10-04 12:00 | Outpatient (RCR) | payer MEDICARE, OTHER, SELFPAY | END 2023-10-04 23:59 | disposition home or self-care (01) | LOC: ANHAUDIO 12:00 | PROVIDERS: PCP Family Medicine; Visit Provider Otolaryngology | DX: Z46.1 Encounter for fitting and adjustment of hearing aid (principal) | CPT/HCPCS: 99199; V5261 ==

== ENCOUNTER 2024-02-16 09:11 | Outpatient (CLI) | payer MEDICARE, OTHER, SELFPAY ==
[2024-02-16 09:52] LABS: Basophils Percent Auto 0.5 % (0.2-1.2); Eosinophils Absolute Auto 0.2 K/mm3 (0-0.3); Eosinophils Percent Auto 2.4 % (0-4.4); Hematocrit 41.8 % (42.0-52.0); Hemoglobin 14.5 g/dL (14.0-18.0); Immature Granulocyte Absolute 0.03 K/mm3 (0.00-0.031); Immature Granulocyte Percent A 0.4 % (0-0.5); Lymphocytes Absolute Auto 1.27 K/mm3 (0.9-3.2); Lymphocytes Percent Auto 15.7 % (18.3-44.2); Mean Corpuscular HGB Conc 34.7 g/dl (32-36); Mean Corpuscular Hemoglobin 33.3 pg (26-34); Mean Corpuscular Volume 95.9 fl (80-100); Mean Platelet Volume 9.7 fl (7.4-10.4); Monocytes Absolute Auto 0.8 K/mm3 (0.1-0.6); Monocytes Percent Auto 9.9 % (2.6-8.5); Neutrophils Absolute Auto 5.7 K/mm3 (1.3-6.7); Neutrophils Percent Auto 71.1 % (45.5-73.1); Platelet Count Result 190 k/mm3 (150-375); Red Blood Count 4.36 M/mm3 (4.6-6.20); Red Cell Distribution Width 12.5 % (11.5-14.5); White Blood Count 8.1 K/mm3 (4.5-10.0)
[2024-02-16 09:55] LABS: Hemoglobin A1C 5.9 % (<5.7)
[2024-02-16 10:04] LABS: Alanine Aminotransferase 23 U/L (6-50); Alkaline Phosphatase 61 U/L (38-126); Anion Gap 8 mmol/L (4-12); Aspartate Amino Transferase 30 U/L (17-59); Bilirubin,Total 1.4 mg/dL (0.2-1.3); Blood Urea Nitrogen 26 mg/dL (9-20); Calcium 8.7 mg/dL (8.4-10.2); Carbon Dioxide 26 mmol/L (22-30); Chloride 105 mmol/L (98-107); Cholesterol 107 mg/dL (0-200); Estimated Glomerular Filt Rate > 60; Glucose 102 mg/dL (65-110); HDL Direct 40 mg/dL; Potassium 4.5 mmol/L (3.4-5.0); Sodium 139 mmol/L (137-145); Triglycerides 73 mg/dL (<150)
[2024-02-16 10:14] LABS: LDL Cholesterol Direct 47 mg/dL
== END 2024-02-16 09:12 | disposition home or self-care (01) ==
PROVIDERS: PCP Family Medicine; Visit Provider Family Medicine
DX: E78.2 Mixed hyperlipidemia (principal); R73.03 Prediabetes; R53.83 Other fatigue
CPT/HCPCS: 36415; 80053; 80061; 82248; 83036; 85025

== ENCOUNTER 2024-08-16 07:08 | Outpatient (CLI) | payer MEDICARE, OTHER, SELFPAY ==
--- NOTE | ~2024-08-16 | XR_ITS ---
XR ankle LT min 3V 08/16/2024 07:49 INDICATION: Left ankle pain PROCEDURE: 3 views left ankle COMPARISON: No prior studies for comparison. FINDINGS: Fracture, dislocation or subluxation is not identified. Ankle mortise intact. The soft tiss ues appear within normal limits. No foreign bodies are identified. IMPRESSION: 1: NO ACUTE BONE OR JOINT ABNORMALITY IDENTIFIED. Reviewed, dictated and finalized at location A.
--- OUTSIDE RECORDS SUMMARY | 2024-08-16 07:12 | XMS_ITS | Clinical Summary ---
Author [place] [facility] [place] [address] Address [address] [place] [address] Care Team Providers Care Aviation Project Engineer Name Role Phone Betina Rdz MD Primary Care Provider [phone] Allergies Active Allergy Reactions Criticality Noted Date Comments Benzonatate Rash Medium 11/22/2018 Medications bisacodyl EC (DULCOLAX, BISACODYL,) 5 mg EC tablet take 1 Tablet (5MG) by oral route every day 0 2 Active Additional Information Patient taking differently:5 mgDaily PRN, Reported on 06/17/2023 multivitamin-mi nerals-lutein (CENTRUM SILVER) tablet take 1 tablet by oral route every day 0 2 Active aspirin (ASPIRIN LOW DOSE) 81 mg tablet take 1 Tablet (81MG) by oral route every day 0 2 Active loratadine (CLARITIN) 10 mg tablet take 1 tablet by oral route every day 0 0 4 Active ezetimibe (ZETIA) 10 mg tablet take 1 Tablet by oral route every day 0 0 6 Active atorvastatin (LIPITOR) 40 mg tablet take 1 tablet by oral route every day 0 0 6 Active omeprazole (PriLOSEC) 20 mg capsule Take 1 capsule (20 mg total) by mouth daily Active turmeric (CURCUMIN MISC) Acti ve fluticasone propionate (FLONASE) 50 mcg/actuation nasal spray Administer 1 spray into each nostril as needed Active psyllium, aspartame, SF (METAMUCIL SF) 3.4 gram packet Take 1 packet by mouth daily Active nitroglycerin (NITROSTAT) 0.[address] 1 tablet (0.4 mg total) under the tongue every 5 (five) minutes as needed for chest pain 25 tablet 2 4 Active metoprolol XL (TOPROL-XL) 25 mg extended release tablet TAKE 1 TABLET DAILY 90 tablet 3 5 Active Active Problems Problem Noted Date Diagnosed Date Angina pectoris, unspecified 12/21/2023 Coronary artery disease involving [place] coronar y artery 09/22/2016 Status post coronary artery bypass grafting 09/10 Surgical History Surgery Date Site/Laterality Comments CORONARY ARTERY BYPASS GRAFT 04/12/2005 - 04/11/2006 [facility] to LAD, saphenous vein to OM, saphenous vein to right coronary artery Medical History Medical History Date Comments Arthritis About 2010 Heart disease September 2005 Sleep apnea Family History Medical History Relation Name Comments Coronary artery disease Father Lay whelan Artery Bypass Graft; Coronary artery disease Mother Liz whelan Artery Bypass Graft; Cause of : Coronary Artery Bypass Graft Heart disease Mother Liz Cronin Relation Name Status Comments Father Alive Mother Liz Cronin Social History Tobacco Use Types Packs/Day Years Used Date Smoking Tobacco: Never Cigarettes Smokeless Tobacco: Never Tobacco Cessation:Counseling Given: Not Answered Alcohol Use Standard Drinks/Week Comments Yes 5 (1 standard drink = 0.6 oz pur e alcohol) Sex and Gender Information Value Date Recorded Sex Assigned at Not on file Legal Sex Male 1:06 AM DOSIMETRIST Gender Identity Male 11/28/2019 8:40 AM CDT Sexual Orientation Straight 11/28/2019 8: 40 AM CDT Obstetrics History Last Filed Vital Signs Vital Sign Reading Time Taken Comments Blood Pressure 110/66 12/21/2023 9:56 AM CDT Pulse 88 12/21/2023 9:56 AM CDT Temperature - - Respiratory Rate 16 09/22/2016 10:54 AM CDT Oxygen Saturation 95% 12/21/2023 9:56 AM CDT Inhaled Oxygen Concentration - - Weight 85.3 kg (188 lb) 12/21/2023 9:56 AM CDT Height 182.9 cm (6') 12/21/2023 9:56 AM CDT Body Mass Index 25.5 12/21/2023 9:56 AM CDT Plan of Treatment Health Maintenance Due Date Last Done Comments Depression Screening 1941 Fall Risk Assessment 1941 Hepatitis B Screening 1959 Well Visit 65+ 2006 Covid-19 Vaccine (6 2023-2 5 season) 2023 02/01/2023, 04/09/2022, 08/19/2021, Additional history exists Influenza Vaccine (Season Ended) 2024 01/14/2023, 01/16/2022, 01/14/2021, Additional history exists DTaP/Tdap/Td Vaccine (3 - Td or Tdap) 08/21/2032 08/21/2022, 10/17/2015, 07/08/2009, Additional history exists Pneumococcal vaccine 65+ Completed 022, 05/10/2016, 06/15/2006 Zoster Vaccine Completed 04/22/2022, 05/2021, 11/28/2012 Insurance MEDICARE [facility] Address: [address] [address] [place] [address] [employer] MEDICARE FOR LIFE Care Teams Aviation Project Engineer Relationship Specialty Start Date End Date Betina Rdz MD PCP - General Family Medicine 04/10/21
--- OUTSIDE RECORDS SUMMARY | 2024-08-16 07:12 | XMS_ITS | Clinical Summary ---
Author Organization [facility] Address [address] [facility] [address] [place] [address] Phone Care Team Providers Care Counseling Director Name Role Phone Jenna Bates MD Primary Care Provi dane Medications polyethylene glycol (MIRALAX) Powder Use entire bottle of 255 grams of miralax for Colon prep as directed by office. 255 g 08/26/2017 Active Social History Tobacco Use Types Packs/Day Years Used Date Smoking Tobacco: Never Assessed Sex and Gender Information Value Date Recorded Sex Assigned at Not on file Legal Sex Male 10:16 PM CDT Gender Identity Not on file Sexual Orientation Not on file Plan of Treatment Health Maintenance Due Date Last Done Comments Hepatitis C Virus (HCV) Screening 1940 TdaP Immunization 1940 Pneumococcal Immunization (5 0+ years) (1 of 1 - PCV) 1991 Zoster Immunization (1 of 2) 1991 Respiratory Syncytial Virus (RSV) Immunization (Adult) (1 - 1-dose 75+ series) 2016 Influenza Immunization (#1) 2023 SARS-COV-2 Immunization ( - 2023-25 season) 2023 Hepatitis B Immunization Aged Out No longer eligible based on patient's age to complete this topic Meningococcal Immunization (ACWY) Aged Out No longer eligible based on patient's age to complete this topic Rotavirus Immunization Aged Out No lo nger eligible based on patient's age to complete this topic Insurance MEDICARE [facility] [employer] Care Teams Counseling Director Relationship Specialty Start Date End Date Jenna Bates MD [address] [place] [address] PCP - General Family Medicine 09/20/17
--- OUTSIDE RECORDS SUMMARY | 2024-08-16 07:12 | XMS_ITS | Referral Summary ---
Author Organization [facility] [place] [address] Address [address] [place] [address] Care Team Providers Care Director Learning And Development Name Role Phone Betina Rdz MD Primary Care Provider [phone] Allergies Active Allergy Reactions Criticality Noted Date [...] pectoris, unspecified 12/21/2023 Coronary artery disease involving [place] coronar y artery 09/22/2016 Status post coronary artery bypass grafting 09/10 Social History Tobacco Use Types Packs/Day Years Used Date Smoking Tobacco: Never Cigarettes Smokeless Tobacco: Never Tobacco Cessation:Counseling Given: Not Answered Alcohol Use Standard Drinks/Week Comments Yes 5 (1 standard drink = 0.6 oz pur e alcohol) Sex and Gender Information Value Date Recorded Sex Assigned at Not on file Legal Sex Male 1:06 AM THERMAL MOLDER Gender Identity Male 11/28/2019 8:40 AM CDT Sexual Orientation Straight 11/28/2019 8: 40 AM CDT Last Filed Vital Signs Vital Sign Reading [...] 12/21/2023 9:56 AM CDT Plan of Treatment Not on file Insurance MEDICARE FOR LIFE MEDICARE FOR LIFE Care Teams Director Learning And Development Relationship Specialty Start Date End Date Betina Rdz MD PCP - General Family Medicine 04/10/21
[2024-08-16 07:49] LABS: Hematocrit 43.2 % (42.0-52.0); Hemoglobin 14.3 g/dL (14.0-18.0); Mean Corpuscular HGB Conc 33.1 g/dl (32-36); Mean Corpuscular Hemoglobin 32.3 pg (26-34); Mean Corpuscular Volume 97.5 fl (80-100); Mean Platelet Volume 10.3 fl (7.4-10.4); Platelet Count Result 183 k/mm3 (150-375); Red Blood Count 4.43 M/mm3 (4.6-6.20); Red Cell Distribution Width 12.5 % (11.5-14.5); White Blood Count 6.5 K/mm3 (4.5-10.0)
[2024-08-16 08:06] LABS: Hemoglobin A1C 5.7 % (<5.7)
[2024-08-16 08:07] LABS: Alanine Aminotransferase 30 U/L (6-50); Alkaline Phosphatase 64 U/L (38-126); Anion Gap 8 mmol/L (4-12); Aspartate Amino Transferase 29 U/L (17-59); Bilirubin,Total 1.2 mg/dL (0.2-1.3); Blood Urea Nitrogen 29 mg/dL (9-20); Calcium 8.8 mg/dL (8.4-10.2); Carbon Dioxide 25 mmol/L (22-30); Chloride 108 mmol/L (98-107); Cholesterol 113 mg/dL (0-200); Estimated Glomerular Filt Rate 59; Glucose 112 mg/dL (65-110); HDL Direct 39 mg/dL; Potassium 4.6 mmol/L (3.4-5.0); Sodium 141 mmol/L (137-145); Triglycerides 71 mg/dL (<150)
[2024-08-16 08:18] LABS: LDL Cholesterol Direct 51 mg/dL
== END 2024-08-16 07:09 | disposition home or self-care (01) ==
PROVIDERS: PCP Family Medicine; Visit Provider Family Medicine
DX: M25.572 Pain in left ankle and joints of left foot (principal); D64.9 Anemia, unspecified; E78.2 Mixed hyperlipidemia; I10 Essential (primary) hypertension; R17 Unspecified jaundice; R73.03 Prediabetes
CPT/HCPCS: 36415; 73610; 80048; 80061; 80076; 83036; 85027

== ENCOUNTER 2025-04-10 07:29 | Outpatient (CLI) | payer MEDICARE, OTHER, SELFPAY ==
--- OUTSIDE RECORDS SUMMARY | 2025-04-10 07:33 | XMS_ITS | Clinical Summary ---
Author Organization [facility] [place] [address] Address [address] [place] [address] Care Team Providers Care Group Manager Name Role Phone Betina Rdz MD Primary Care Provider [phone] Allergies Active Allergy Reactions Criticality Noted Date Comments Benzonatate Rash Medium 11/22/2018 Medications multivitamin-mi nerals-lutein (CENTRUM SILVER) tablet take 1 tablet by oral route every day 0 2 Active aspirin (ASPIRIN LOW DOSE) 81 mg tablet take 1 Tablet (81MG) by oral route every day 0 2 Active ezetimibe (ZETIA) 10 mg tablet take [...] TAKE 1 TABLET DAILY 90 tablet 3 Active Active Problems Problem Noted Date Diagnosed Date Angina pectoris, unspecified 12/21/2023 Coronary artery disease involving [place] coronar y artery 09/22/2016 Status post coronary artery bypass grafting 09/10 Encounters Date Type Department Care Team Description 03/29/2025 Telephone [facility] Card[facility] [address] [place] [address] Lenard Zarate MD 03/05/2025 10:45 AM TICK SEWER Office Visit [facility] Cardiology [address] [place] [address] Lenard Zarate MD Coronary artery disease involving [place] coronary artery of [place] heart without angina pectoris (Primary Dx); Status post coronary artery bypass grafting from Last 3 Months Surgical History Surgery Date Site/Laterality Comments CORONARY ARTERY BYPASS GRAFT 04/12/2005 - 04/11/2006 [facility] to LAD, saphenous vein to OM, saphenous vein to right coronary artery CATARACT EXTRACTION Nov 2023 Medical History Medical History Date Comments Arthritis About 2010 Heart disease September 2005 Sleep apnea Family History Medical History Relation Name Comments Coronary artery disease Father Lay whelan Artery Bypass Graft; Coronary artery disease Mother Liz whelan Artery Bypass Graft; Cause of : Coronary Artery Bypass Graft Heart disease Mother Liz Cronin Relation Name Status Comments Father Alive Mother Liz Cronin Alive Social History Tobacco Use Types Packs/Day Years Used Date Smoking Tobacco: Never Smokeless Tobacco: Never Tobacco Cessation:Counseling Given: Not Answered Alcohol Use Standard Drinks/Week Comments Yes 5 (1 standard drink = 0.6 oz pur e alcohol) Sex and Gender Information Value Date Recorded Sex Assigned at Not on file Legal Sex Male 1:06 AM TICK SEWER Gender Identity Male 11/28/2019 8:40 AM CDT Sexual Orientation Straight 11/28/2019 8: 40 AM CDT Last Filed Vital Signs Vital Sign Reading Time Taken Comments Blood Pressure 120/62 03/05/2025 10:37 AM TICK SEWER Pulse 78 03/05/2025 10:37 AM TICK SEWER Temperature - - Respiratory Rate 16 09/22/2016 10:54 AM CDT Oxygen Saturation 98% 03/05/2025 10:37 AM TICK SEWER Inhaled Oxygen Concentration - - Weight 88.9 kg (196 lb) 03/05/2025 10:37 AM TICK SEWER Height 182.9 cm (6') 03/05/2025 10:37 AM TICK SEWER Body Mass Index 26.58 03/05/2025 10:37 AM TICK SEWER Plan of Treatment Health Maintenance Due Date Last Done Comments Depression Screening 1941 Fall Risk Assessment 1941 Hepatitis B Screening 1959 Well Visit 65+ 2006 Covid-19 Vaccine (6 - 2024-2 6 season) 2024 02/01/2023, 04/09/2022, 08/19/2021, Additional history exists Influenza Vaccine (#1) 2024 , 01/16/2022, 01/14/2021, Additional history exists DTaP/Tdap/Td Vaccine (3 - Td or Tdap) 08/21/2032 08/21/2022, 10/17/2015, 07/08/2009, Additional history exists Pneumococcal vaccine 65+ Completed 022, 05/10/2016, 06/15/2006 Zoster Vaccine Completed 04/22/2022, 05/2021, 11/28/2012 Insurance MEDICARE [employer] MEDICARE [facility] Address: [facility] [address] [place] [address] [employer] Care Teams Group Manager Relationship Specialty Start Date End Date Betina Rdz MD PCP - General Family Medicine 04/10/21
[2025-04-10 07:50] LABS: Hematocrit 44.1 % (42.0-52.0); Hemoglobin 15.1 g/dL (14.0-18.0); Immature Granulocyte Percent A 0.4 % (0-0.5); Lymphocytes Absolute Auto 1.39 K/mm3 (0.9-3.2); Mean Corpuscular HGB Conc 34.2 g/dl (32-36); Mean Corpuscular Hemoglobin 33.0 pg (26-34); Mean Corpuscular Volume 96.5 fl (80-100); Nucleated Red Blood Cells Absolute Auto 0.000 K/mm3 (0.0-0.012); Nucleated Red Blood Cells Perc 0.0 % (0.0-0.2); Platelet Count Result 193 k/mm3 (150-375); Red Blood Count 4.57 M/mm3 (4.6-6.20); White Blood Count 6.7 K/mm3 (4.5-10.0)
[2025-04-10 08:18] LABS: Alanine Aminotransferase 24 U/L (6-50); Albumin Level 4.1 g/dL (3.5-5.1); Alkaline Phosphatase 63 U/L (38-126); Anion Gap 8 mmol/L (4-12); Aspartate Amino Transferase 31 U/L (17-59); Bilirubin,Total 1.2 mg/dL (0.2-1.3); Blood Urea Nitrogen 27 mg/dL (9-20); Calcium 8.9 mg/dL (8.4-10.2); Carbon Dioxide 26 mmol/L (22-30); Chloride 106 mmol/L (98-107); Cholesterol 121 mg/dL (0-200); Estimated Glomerular Filt Rate > 60; Glucose 107 mg/dL (65-110); HDL Direct 42 mg/dL; Potassium 4.4 mmol/L (3.4-5.0); Sodium 140 mmol/L (137-145); Total Protein 7.1 g/dL (6.3-8.2); Triglycerides 82 mg/dL (<150)
[2025-04-10 09:35] LABS: Hemoglobin A1C 5.9 % (<5.7)
== END 2025-04-10 07:30 | disposition home or self-care (01) ==
DX: E11.9 Type 2 diabetes mellitus without complications (principal); E78.2 Mixed hyperlipidemia; R53.83 Other fatigue
CPT/HCPCS: 36415; 80053; 80061; 83036; 85025